=== PATIENT | female | born 1940 | race Caucasian/White ===

== ENCOUNTER 2016-12-25 09:27 | Outpatient (CLI) | payer MEDICARE | END 2016-12-25 09:28 | LOC: NAVSJIPCSP 09:27 | PROVIDERS: ATTEND Internal Medicine | DX: E78.5 Hyperlipidemia, unspecified (principal) | CPT/HCPCS: 36415; 80061 ==

== ENCOUNTER 2017-04-02 09:53 | Outpatient (CLI) | payer MEDICARE ==
[2017-04-02 13:27] LABS: Cardiac Risk 5.2 (Less than 4.5)
== END 2017-04-02 09:54 | disposition home or self-care (01) ==
LOC: NAVSJIPCSP 09:53
PROVIDERS: ATTEND Internal Medicine
DX: E78.5 Hyperlipidemia, unspecified (principal); Z79.899 Other long term (current) drug therapy
CPT/HCPCS: 36415; 80061

== ENCOUNTER 2017-04-12 15:48 | Emergency (ER) | payer MEDICARE ==
[2017-04-12 16:44] LABS: #Basophils 0.1 thou/uL (0.0-0.2); #Eosinphils 0.5 thou/uL (0.0-0.7); #Lymphocytes 2.2 thou/uL (1.20-3.40); #Monocytes 0.7 thou/uL (0.11-0.59); #Neutrophils 6.2 thou/uL (1.40-6.50); %Basophils 0.7 % (0.0-1.0); %Eosinophils 4.7 % (0.0-10.0); %Lymphocytes 22.8 % (21.0-51.0); %Monocytes 7.4 % (0.0-10.0); %Neutrophils 64.5 % (42.0-75.0); Hemoglobin 13.6 g/dL (12.0-16.0); Mean Corpuscular HGB CONC 32.6 g/dL (32.0-36.0); Mean Corpuscular Hemoglobin 30.9 pg (27.0-31.0); Mean Corpuscular Volume 94.6 fl (81.0-99.0); Mean Platelet Volume 7.4 fL (7.4-10.4); Platelet Count 228 thou/uL (130-400); RBC Distribution Width 11.5 % (11.5-14.5); Red Blood Cell (RBC) Count 4.42 mill/uL (4.20-5.40); White Blood Cell (WBC) Count 9.7 thou/uL (4.8-10.8)
[2017-04-12 16:45] LABS: Bilirubin Negative (Negative); Blood, Urine Negative (Negative); Clarity Clear (Clear); Glucose, Urine (Dipstick) Negative (Negative); Leukocyte Negative (Negative); Nitrite Negative (Negative); Protein, Urine (Dipstick) Negative (Neg-Trace); Urobilinogen 0.2 mg/dL (0.2-1.0)
--- NOTE | 2017-04-12 17:03 | RAD ---
TWO VIEWS CHEST 04/12/17 HISTORY: Cough. Low grade fever for 24 hours. PA and lateral views of the chest is obtained. Cardiomegaly is seen. there is an air fluid level in the retrocardiac region. This may represent a h iatal hernia. The lungs are otherwise unremarkable. No evidence of effusions, pneumonia, or pneumoth orax seen. IMPRESSION: 1. Cardiomegaly. 2. Hiatal hernia. POS: [facility]
[2017-04-12 17:09] LABS: ALT (SGPT) 20 U/L (8-55); AST (SGOT) 24 U/L (5-34); Albumin 4.6 g/dL (3.4-4.8); Alkaline Phosphatase 23 U/L (40-150); Anion Gap 17 mmol/L (10-20); BUN (Urea Nitrogen) 15 mg/dL (9.8-20.1); Bilirubin, Total 0.3 mg/dL (0.2-1.2); Calc. Creatinine Clearance 0 mL/min (70-130); Calcium 9.8 mg/dL (7.8-10.44); Carbon Dioxide 25 mmol/L (23-31); Chloride 104 mmol/L (98-107); Estimated GFR-MDRD 72; Glucose 92 mg/dL (83-110); Potassium 3.8 mmol/L (3.5-5.1); Protein, Total 7.6 g/dL (6.0-8.3); Sodium 142 mmol/L (136-145)
[2017-04-12] MEDS ORDERED: Lisinopril 20 MG TAB ONE (17:53)
== END 2017-04-12 18:00 | disposition home or self-care (01) ==
LOC: NAV ERS 15:48
DX: J20.9 Acute bronchitis, unspecified (principal); I10 Essential (primary) hypertension; M19.90 Unspecified osteoarthritis, unspecified site; E78.5 Hyperlipidemia, unspecified; Z79.899 Other long term (current) drug therapy
CPT/HCPCS: 36415; 71020; 80053; 81003; 85025

== ENCOUNTER 2017-08-04 11:45 | Outpatient (CLI) | payer MEDICARE ==
[2017-08-04 13:43] LABS: Bilirubin Negative (Negative); Blood, Urine Negative (Negative); Clarity Clear (Clear); Glucose, Urine (Dipstick) Negative (Negative); Leukocyte Large (Negative); Nitrite Negative (Negative); Protein, Urine (Dipstick) Negative (Neg-Trace); Urobilinogen 0.2 mg/dL (0.2-1.0); pH, Urine 7.5 (5.0-9.0)
[2017-08-04 13:56] LABS: Bacteria/HPF Rare-Few HPF (None Seen); RBC/HPF 0-3 HPF (0-3); Squamous Epithelial 0-3 HPF (0-3)
== END 2017-08-04 11:46 | disposition home or self-care (01) ==
LOC: NAVSJIPCSP 11:45
PROVIDERS: ATTEND Internal Medicine
DX: R30.0 Dysuria (principal)
CPT/HCPCS: 81003; 81015; 87086

== ENCOUNTER 2017-08-13 08:33 | Outpatient (CLI) | payer MEDICARE ==
[2017-08-13 12:17] LABS: #Basophils 0.1 thou/uL (0.0-0.2); #Eosinphils 0.1 thou/uL (0.0-0.7); #Lymphocytes 1.7 thou/uL (1.20-3.40); #Monocytes 0.4 thou/uL (0.11-0.59); %Basophils 0.9 % (0.0-1.0); %Eosinophils 1.8 % (0.0-10.0); %Lymphocytes 26.6 % (21.0-51.0); %Neutrophils 63.7 % (42.0-75.0); Hemoglobin 13.1 g/dL (12.0-16.0); Mean Corpuscular HGB CONC 33.4 g/dL (32.0-36.0); Mean Corpuscular Hemoglobin 31.5 pg (27.0-31.0); Mean Corpuscular Volume 94.4 fl (81.0-99.0); Mean Platelet Volume 6.4 fL (7.4-10.4); Platelet Count 265 thou/uL (130-400); RBC Distribution Width 11.3 % (11.5-14.5); Red Blood Cell (RBC) Count 4.16 mill/uL (4.20-5.40); White Blood Cell (WBC) Count 6.3 thou/uL (4.8-10.8)
[2017-08-13 12:38] LABS: ALT (SGPT) 21 U/L (8-55); AST (SGOT) 22 U/L (5-34); Albumin 4.5 g/dL (3.4-4.8); Alkaline Phosphatase 19 U/L (40-150); Anion Gap 14 mmol/L (10-20); BUN (Urea Nitrogen) 12 mg/dL (9.8-20.1); Bilirubin, Total 0.5 mg/dL (0.2-1.2); Calc. Creatinine Clearance 0 mL/min (70-130); Calcium 10.2 mg/dL (7.8-10.44); Carbon Dioxide 24 mmol/L (23-31); Cardiac Risk 4.3 (Less than 4.5); Chloride 96 mmol/L (98-107); Cholesterol 229 mg/dl (< 200 Desired); Estimated GFR-MDRD 62; Globulin 2.5 g/dL (2.4-3.5); Glucose 95 mg/dL (83-110); HDL Cholesterol 53 mg/dL (>60 Neg Risk); LDL Cholesterol, Calculated 153 mg/dL; Potassium 4.8 mmol/L (3.5-5.1); Sodium 129 mmol/L (136-145); Triglycerides 117 mg/dL (Less than 150)
== END 2017-08-13 08:34 | disposition home or self-care (01) ==
LOC: NAVSJIPCSP 08:33
PROVIDERS: ATTEND Internal Medicine
DX: E78.5 Hyperlipidemia, unspecified (principal); I11.9 Hypertensive heart disease without heart failure; K21.9 Gastro-esophageal reflux disease without esophagitis; Z79.899 Other long term (current) drug therapy
CPT/HCPCS: 36415; 80053; 80061; 81003; 85025

== ENCOUNTER 2017-08-14 13:34 | Outpatient (CLI) | payer MEDICARE ==
[2017-08-14 13:46] LABS: Bilirubin Negative (Negative); Blood, Urine Trace (Negative); Clarity Clear (Clear); Glucose, Urine (Dipstick) Negative (Negative); Leukocyte Trace (Negative); Nitrite Negative (Negative); Protein, Urine (Dipstick) Negative (Neg-Trace); Urobilinogen 0.2 mg/dL (0.2-1.0); pH, Urine 6.5 (5.0-9.0)
[2017-08-14 13:54] LABS: Bacteria/HPF Rare-Few HPF (None Seen); Crystals/HPF 2+ CA OXALATE HPF (Negative); RBC/HPF 0-3 HPF (0-3); Squamous Epithelial 0-3 HPF (0-3); WBC/HPF 0-3 HPF (0-3)
== END 2017-08-14 13:35 | disposition home or self-care (01) ==
LOC: NAVSJIPCSP 13:34
PROVIDERS: ATTEND Internal Medicine
DX: I11.9 Hypertensive heart disease without heart failure (principal); K21.9 Gastro-esophageal reflux disease without esophagitis; Z79.899 Other long term (current) drug therapy
CPT/HCPCS: 81003; 81015

== ENCOUNTER 2018-09-16 09:53 | Outpatient (CLI) | payer MEDICARE ==
--- NOTE | 2018-09-16 11:31 | CT ---
CT BRAIN WITHOUT CONTRAST: COMPARISON: None. HISTORY: Memory loss and dizziness for 6 months. TECHNIQUE: Multiple contiguous axial images were obtained in a CT of the brain without contrast. FINDINGS: There are scattered hypodensities in the subcortical and periventricular white matter, likely seconda ry to small-vessel ischemic disease. No large confluent infarction is seen. There is no evidence of hydrocephalus, intracranial hemorrhage, or extraaxial fluid collection. The calvarium and overlying soft tissues are unremarkable. There is opacification of the left maxill livia sinus. The other paranasal sinuses and mastoid air cells are well aerated. IMPRESSION: No evidence of acute intracranial abnormality. POS: [facility]
== END 2018-09-16 09:54 | disposition home or self-care (01) ==
LOC: NAV CT 09:53
PROVIDERS: ATTEND Internal Medicine
DX: R42 Dizziness and giddiness (principal)
CPT/HCPCS: 70450

== ENCOUNTER 2019-06-14 17:01 | Inpatient (IN) | payer MEDICARE, MEDICAID ==
[2019-06-14] MEDS ORDERED: Sodium Chloride 0.9% 1,000 ML ONE (17:22)
[2019-06-14 17:36] LABS: #Basophils 0.1 thou/uL (0.0-0.2); #Eosinphils 0.2 thou/uL (0.0-0.7); #Lymphocytes 1.9 thou/uL (1.20-3.40); #Monocytes 0.5 thou/uL (0.11-0.59); #Neutrophils 4.8 thou/uL (1.40-6.50); %Basophils 1.1 % (0.0-1.0); %Lymphocytes 25.3 % (21.0-51.0); %Monocytes 6.8 % (0.0-10.0); %Neutrophils 63.9 % (42.0-75.0); Hemoglobin 13.1 g/dL (12.0-16.0); Mean Corpuscular HGB CONC 31.7 g/dL (32.0-36.0); Mean Corpuscular Hemoglobin 30.8 pg (27.0-31.0); Mean Corpuscular Volume 97.2 fL (78.0-98.0); Mean Platelet Volume 6.9 fL (7.4-10.4); Platelet Count 236 thou/uL (130-400); RBC Distribution Width 11.8 % (11.5-14.5); Red Blood Cell (RBC) Count 4.27 mill/uL (4.20-5.40); White Blood Cell (WBC) Count 7.5 thou/uL (4.8-10.8)
[2019-06-14 17:51] LABS: ALT (SGPT) 16 U/L (8-55); AST (SGOT) 23 U/L (5-34); Albumin 4.6 g/dL (3.4-4.8); Alkaline Phosphatase 25 U/L (40-150); Anion Gap 16 mmol/L (10-20); BUN (Urea Nitrogen) 18 mg/dL (9.8-20.1); Bilirubin, Total 0.3 mg/dL (0.2-1.2); CK (CPK) 83 U/L (29-168); Calc. Creatinine Clearance 0 mL/min (70-130); Calcium 10.2 mg/dL (7.8-10.44); Carbon Dioxide 25 mmol/L (23-31); Chloride 104 mmol/L (98-107); Estimated GFR-MDRD 68; Globulin 2.5 g/dL (2.4-3.5); Glucose 108 mg/dL (83-110); Protein, Total 7.1 g/dL (6.0-8.3); Sodium 141 mmol/L (136-145)
[2019-06-14 18:52] LABS: Bilirubin Negative (Negative); Blood, Urine Trace (Negative); Clarity Clear (Clear); Glucose, Urine (Dipstick) Negative (Negative); Leukocyte Negative (Negative); Nitrite Negative (Negative); Protein, Urine (Dipstick) Negative (Neg-Trace); Urobilinogen 0.2 mg/dL (Less than 2)
--- NOTE | 2019-06-14 18:53 | CT ---
CT HEAD WITHOUT IV CONTRAST: HISTORY: Headache. COMPARISON: 09/16/2018 FINDINGS: Scattered chronic white matter ischemic changes are noted, stable. No focal mass or midline shift. No intraaxial or extraaxial hemorrhage. Left maxillary sinus extensive mucosal disease with the sinu s being nearly filled with soft tissue density. This does not appear significantly changed from the prior study. IMPRESSION: 1. Stable appearing brain CT. 2. Atrophy and chronic white matter ischemic changes. 3. Stable left maxillary sinus mucosal disease. POS: [facility]
[2019-06-14] MEDS ORDERED: hydrALAZINE 10 MG TAB ONE (19:06)
[2019-06-14] MEDS ORDERED: Carvedilol 3.125 MG TAB ONE (19:06)
[2019-06-14] MEDS ORDERED: Acetaminophen 325 MG TAB ONE (19:06)
[2019-06-14 19:21] LABS: RBC/HPF 0-3 HPF (0-3); Squamous Epithelial 0-3 HPF (0-3)
[2019-06-14 21:11] VITALS: BMI 28.2
[2019-06-14] MEDS ORDERED: ALPRAZolam 0.25 MG TAB PO PRN (21:21)
[2019-06-14] MEDS: cloNIDine 0.1 MG TAB PO PRN (23:19)
[2019-06-15 05:39] LABS: Anion Gap 14 mmol/L (10-20); Globulin 2.5 g/dL (2.4-3.5)
[2019-06-15 05:45] LABS: Eosinophils 2 % (0-10); Hemoglobin 13.6 g/dL (12.0-16.0); Lymphocytes 22 % (21-51); MDiff Complete? YES; Mean Corpuscular HGB CONC 32.3 g/dL (32.0-36.0); Mean Corpuscular Hemoglobin 31.3 pg (27.0-31.0); Mean Corpuscular Volume 96.8 fL (78.0-98.0); Mean Platelet Volume 6.8 fL (7.4-10.4); Monocytes 8 % (0-10); Neutrophil 68 % (42-75); Platelet Count 234 thou/uL (130-400); Platelet Morphology Comment Appears Adequate; RBC Distribution Width 12.1 % (11.5-14.5); RBC Morphology Normal; Red Blood Cell (RBC) Count 4.33 mill/uL (4.20-5.40); White Blood Cell (WBC) Count 8.3 thou/uL (4.8-10.8)
[2019-06-15 06:03] LABS: ALT (SGPT) 14 U/L (8-55); AST (SGOT) 19 U/L (5-34); Albumin 4.2 g/dL (3.4-4.8); Alkaline Phosphatase 22 U/L (40-150); BUN (Urea Nitrogen) 13 mg/dL (9.8-20.1); Bilirubin, Total 0.6 mg/dL (0.2-1.2); Calc. Creatinine Clearance 87 mL/min (70-130); Calcium 9.7 mg/dL (7.8-10.44); Carbon Dioxide 28 mmol/L (23-31); Chloride 104 mmol/L (98-107); Estimated GFR-MDRD 82; Glucose 94 mg/dL (83-110); Potassium 3.5 mmol/L (3.5-5.1); Protein, Total 6.7 g/dL (6.0-8.3); Sodium 142 mmol/L (136-145)
[2019-06-15] MEDS ORDERED: Carvedilol 25 MG TAB PO SCH (08:00)
[2019-06-15] MEDS ORDERED: Lisinopril 20 MG TAB PO SCH (09:00)
[2019-06-15] MEDS ORDERED: hydrALAZINE 25 MG TAB PO SCH ×2 (09:00→12:30)
[2019-06-15] MEDS ORDERED: Loratadine 10 MG TAB PO SCH (12:30)
--- NOTE | 2019-06-15 13:51 | SS ---
DATE OF ADMISSION: 06/14/2019 DATE OF DISCHARGE: 06/15/2019 PRINCIPAL DIAGNOSIS: Hypertensive urgency. SECONDARY DIAGNOSES: 1. Hypertension. 2. Dyslipidemia. 3. Allergic rhinitis. 4. Osteoarthritis. 5. Gastroesophageal reflux disease. 6. Depression and anxiety. HOSPITAL COURSE: The patient was admitted with chest pain, which lasted for a few minutes and right-sided headache. She denied any nausea or vomiting. No visual symptoms. No focal numbness or weakness. No speech problems. She was noted to have a systolic blood pressure in the 200s. She was given her evening dose of medicines and she was admitted overnight for monitoring. Her cardiac enzymes were negative. Her blood pressure had dropped as low as 120 and it was 135 this morning, but now it is back up to 160. She still has the headache, but no further chest pain. She states that she has been having some sneezing spell. She did not take anything for the allergies. I advised her the plan is to give her loratadine 10 mg p.o. now and hydralazine 25 mg p.o. now. We will have her walking in the hallways with assistance, and if the recheck blood pressure is less than 160, then we will discharge her home. I advised her that the only change in her medicine will be to increase her hydralazine to 25 mg t.i.d. PAST SURGICAL HISTORY: Anal fissure surgery in 2001 and sinus surgery in 2009. FAMILY HISTORY: Father of cancer, unknown primary. Mother had heart problems. One of her brother had coronary artery disease. SOCIAL HISTORY: Denies any tobacco, alcohol, or recreational drug abuse. She lives alone. ALLERGIES: PENICILLIN AND STATINS. REVIEW OF SYSTEMS: CARDIOVASCULAR SYSTEM: No further chest pain since admission. Denies any palpitations, PND, orthopnea, or pedal edema. RESPIRATORY SYSTEM: Denies any chronic cough, expectoration, or pleuritic type chest pain. GASTROINTESTINAL SYSTEM: Denies any nausea, vomiting, diarrhea, constipation, hematemesis, melena, or hematochezia. GENITOURINARY SYSTEM: Denies any frequency, urgency, dysuria, or hematuria. CENTRAL NERVOUS SYSTEM: Other than right-sided headache, denies any visual symptoms, focal numbness, weakness, or fainting spells. SHEENT: Having some allergy symptoms, but denies any difficulty with speech, vision, hearing, or swallowing. SKIN: Denies any rash. PHYSICAL EXAMINATION: GENERAL: Pleasant 78-year-old female, who is resting comfortably in bed and denies any complaints. She is alert, awake, and oriented x3. VITAL SIGNS: She is afebrile. Heart rate is 70, respirations are 18, and blood pressure recent check is 165/75. HEENT: Normocephalic and atraumatic. Pupils equally reactive to light and accommodation. Extraocular muscles intact. NECK: No JVD, thyromegaly, cervical lymphadenopathy, or throat exudates. No carotid bruits. CARDIOVASCULAR SYSTEM: S1 and S2 plus. RESPIRATORY SYSTEM: Normal vesicular breath sounds. ABDOMEN: Soft and nontender. Bowel sounds heard in all quadrants. EXTREMITIES: Without cyanosis or clubbing. Peripheral pulses are palpable. CENTRAL NERVOUS SYSTEM: AAO x3. Cranial nerves 2 through 12 intact. Generalized weakness. LABORATORY DATA: Laboratory values done in the emergency room shows a white count of 8.3, H and H are 13.6 and 42. Sodium 142, potassium 3.5, BUN and creatinine are 13 and 0.69. Her troponin is less than 0.010. IMPRESSION: 1. Hypertensive urgency versus just uncontrolled hypertension. 2. Atypical chest pain with negative cardiac enzymes and negative EKG. 3. Allergic rhinitis. 4. Sinus headache. 5. Dyslipidemia. 6. Osteoarthritis. 7. History of depression and anxiety. PLAN: 1. Resume home medications. 2. Increase hydralazine to 25 t.i.d. 3. Heart healthy diet. 4. Ambulate in the hallways with assistance and discharge home if systolic blood pressure is less than 160. 5. The patient is advised to monitor her blood pressure at home and follow up in my office in 1 week. Initially, I had stated to followup to just keep a regular appointment, but middle of June, so I want to see her in a week. Activity as tolerated. The patient was advised to call me with any questions or concerns. She does not need any [id number]/15/2019. Discussed with the patient and nursing. Job ID: [id number]
[2019-06-15] MEDS: cloNIDine 0.1 MG TAB PO PRN (14:36)
[2019-06-15 16:28] VITALS: BP 170/80; TEMP 98
== END 2019-06-15 16:40 | disposition home or self-care (01) | DRG 305 ==
LOC: NAV ERS 17:01 → NAV ACUTE 19:57
PROVIDERS: ADMIT Internal Medicine; ATTEND Internal Medicine
DX: I16.0 Hypertensive urgency (principal); I10 Essential (primary) hypertension; E78.5 Hyperlipidemia, unspecified; M19.90 Unspecified osteoarthritis, unspecified site; F41.9 Anxiety disorder, unspecified; J30.9 Allergic rhinitis, unspecified; K21.9 Gastro-esophageal reflux disease without esophagitis; F32.9 Major depressive disorder, single episode, unspecified; R07.89 Other chest pain; Z88.0 Allergy status to penicillin; Z88.8 Allergy status to other drugs, medicaments and biological substances
CPT/HCPCS: 36415; 36416; 70450; 80053; 81003; 81015; 82550; 83605; 84484; 85025; 93005; 94760; 96360; J7050